=== PATIENT | female | born 1960 | race Caucasian/White ===

== ENCOUNTER 2018-05-29 20:54 | Emergency (ER) | payer SELFPAY ==
[~2018-05-29] VITALS: Ht 165.1 cm; Wt 72.6 kg
[2018-05-29 21:00] VITALS: BP 124/75
[2018-05-29] MEDS ORDERED: PROPOFOL 100 ML IV ONE (21:15)
[2018-05-29] MEDS ORDERED: fentaNYL Drip 2500mCg/250mlNS 250 ML IV SCH (21:20)
[2018-05-29] MEDS ORDERED: fentaNYL Drip 2500mCg/250mlNS 250 ML IV ONE (21:22)
[2018-05-29] MEDS ORDERED: SODIUM CHLORIDE 0.9% 1,000 ML IVB ONE (21:26)
--- NOTE | 2018-05-29 21:35 | NUR ---
RT NOTE PT WAS INTUBATED VIA ONE ATTEMPT BY ER DR VEGA WITH 7.5 ETT AND SECURED WITH ANCHORFAST AT 22CM TO THE ORAL RIGHT. BILATERAL CHEST RISE NOTED. + COLOR CHANGE ON CO2 DETECTOR NOTED. BILATERAL BS ARE CTA. SPUTUM SAMPLE COLLECTED FOR SCANT BROWN RETURN AND SENT TO LAB. PT PLACED ON VENT ADQ 0187 ON STATED SETTINGS PER ER DOCTOR. PT PLACED ON VENT AND THEN PT WAS REMOVED UNTIL [address] VEGA PLACED CENTRAL LINE, PER DR REQUEST. PT WAS THEN RE-PLACED ON VENT AND APPEARS TO TOLERATE WELL AT THIS TIME. CONT ORDERED. POX 96% Addendum: 05/29/18 at 2149 by Kaylee Munguia RT Amended: Links added.
[2018-05-29] MEDS ORDERED: MIDAZOLAM DRIP 50 mg/50mL 50 ML IV ONE ×2 (21:47→21:51)
[2018-05-29 22:06] LABS: Basophils # (auto) 0 uL; Basophils % (auto) 0.1 % (0.0-2.0); Eosinophils # (auto) 0 uL; Eosinophils % (auto) 0.1 % (0.0-7.0); Hematocrit 41.2 % (36.0-46.0); Hemoglobin 14.4 g/dL (12.2-16.2); Lymphocytes # (auto) 0.7 uL; Lymphocytes % (auto) 6.8 % (10.0-50.0); Mean Corpuscular Hemoglobin 32.9 pg (28.0-32.0); Mean Corpuscular Hgb Conc. 34.9 g/dL (32.0-36.0); Mean Corpuscular Volume 94.2 fL (80.0-100.0); Monocytes # (auto) 0.3 uL; Monocytes % (auto) 2.8 % (0.0-12.0); Neutrophils # (auto) 9.5 uL; Neutrophils % (auto) 90.2 % (37.0-80.0); Platelet Count (auto) 280 10^3/uL (140-450); Red Blood Cells 4.38 10^6/uL (4.0-5.20); Red Cell Distribution Width 13.6 % (11.8-14.3); White Blood Cell 10.6 10^3/uL (4.4-10.8)
[2018-05-29 22:13] VITALS: BP 124/75
[2018-05-29] MEDS ORDERED: ETOMIDATE (2MG/ML) 20ML VIAL IV ONE (22:15)
[2018-05-29] MEDS ORDERED: SUCCINYLCHOLINE CHLORIDE 20 MG/ML 10ML VIAL IV ONE (22:15)
[2018-05-29 22:22] LABS: Alanine Aminotransferase 105 U/L (13-56); Albumin 2.7 g/dL (3.4-5.0); Anion Gap 16 (5-15); Aspartate Aminotransferase 617 U/L (15-37); BUN/Creatinine Ratio 11.6; Blood Alcohol < 3.0 mg/dL (0-5); Blood Urea Nitrogen 25 mg/dL (7-18); Calcium 7.9 mg/dL (8.5-10.1); Carbon Dioxide 23 mmol/L (21-32); Chloride 100 mmol/L (98-107); GFR African American 30 mL/min; GFR Non-African American 25 mL/min; Glucose 116 mg/dL (74-106); Magnesium 2.6 mg/dL (1.6-2.6); Potassium 4.4 mmol/L (3.5-5.1); Salicylate < 1.7 mg/dL (2.8-20.0); Sodium 139 mmol/L (136-145)
[2018-05-29 22:23] LABS: Acetaminophen < 2.0 ug/mL (10-30)
[2018-05-29 22:25] LABS: Alkaline Phosphatase 93 U/L (45-117); Bilirubin, Total 0.8 mg/dL (0.2-1.0); Total Protein 7.4 g/dL (6.4-8.2)
[2018-05-29 22:26] VITALS: BP 88/68
[2018-05-29] MEDS ORDERED: MIDAZOLAM DRIP 50 mg/50mL 50 ML IV SCH (22:30)
[2018-05-29 22:31] LABS: Urine Bacteria MANY /hpf (None Seen); Urine Blood 1+ /uL (Negative); Urine Hyaline Cast FEW /lpf (0 - 2); Urine Mucus FEW (None Seen); Urine Specific Gravity 1.017 (1.001-1.035); Urine WBC 69 /hpf (0 - 5)
[2018-05-29 22:34] LABS: Amphetamine Screen, Urine POSITIVE (NEGATIVE); Barbiturate Scree,Urine NEGATIVE (NEGATIVE); Benzodiazephine Screen, Urine NEGATIVE (NEGATIVE); Cannabinoid Screen, Urine POSITIVE (NEGATIVE); Cocaine Screen, Urine NEGATIVE (NEGATIVE); Opiate Scree,Urine NEGATIVE (NEGATIVE); Phencyclidine Screen, Urine NEGATIVE (NEGATIVE)
[2018-05-29] MEDS ORDERED: NOREPINEPHRINE 8 MG/250ML KIT 250 ML IV SCH (22:51)
[2018-05-29] MEDS ORDERED: cefTRIAXone 1GM/50ML D5W 50 ML IV ONE (23:45)
[2018-05-30] MEDS ORDERED: MANNITOL 20% SOLN 100 gm/500ml 250 ML IV ONE (00:15)
[2018-05-30 00:18] VITALS: BP 112/79
[2018-05-30] MEDS ORDERED: SODIUM CHL 3% 500 ML IV ONE (00:30)
[2018-05-30] MEDS ORDERED: MANNITOL FTV 25% 12.5 GM/50 ML 100 ML IV ONE (00:36)
[2018-05-30 02:14] VITALS: BP 122/83
[2018-05-30 02:47] VITALS: BP 111/76
== END 2018-05-30 02:58 | disposition short-term general hospital (02) ==
LOC: EDBD 20:54 → ER 20:57 → EDBD 20:57 → ER 05-30 02:58
DX: I61.5 Nontraumatic intracerebral hemorrhage, intraventricular (principal); G93.6 Cerebral edema; R41.82 Altered mental status, unspecified; J69.0 Pneumonitis due to inhalation of food and vomit; R11.10 Vomiting, unspecified; K70.30 Alcoholic cirrhosis of liver without ascites; N39.0 Urinary tract infection, site not specified; F19.10 Other psychoactive substance abuse, uncomplicated
CPT/HCPCS: 31500; 36415; 36556; 36600; 51702; 70450; 71045; 74176; 80053; 80307; 80320; 80329; 81001; 82805; 83735; 85025; 87040; 87070; 87077; 87086; 87088; 87186; 87205; 94761; 96361; 96365; 96366; 96367; 96368; 99291; J0696; J2150; J2250; J2704; J7030; 94002